=== PATIENT | male | born 1975 ===

== ENCOUNTER → 2023-12-11 06:24 | Day surgery (SDC) | payer BC, SELFPAY | LOC: GI 06:24 | PROVIDERS: ATTENDING PHYSICIAN Internal Medicine Gastroenterology | DX: Z12.11 Encounter for screening for malignant neoplasm of colon (principal); K51.50 Left sided colitis without complications; K63.89 Other specified diseases of intestine; K29.70 Gastritis, unspecified, without bleeding; K21.9 Gastro-esophageal reflux disease without esophagitis; K31.89 Other diseases of stomach and duodenum | CPT/HCPCS: 45380; 43239; 88305; 88342 ==

== ENCOUNTER 2024-07-16 20:20 | Inpatient (IN) | payer BC, SELFPAY ==
[2024-07-16] VITALS (8 sets, daily range): BP systolic 108–147; BP diastolic 81–101; BMI 21.6; BMI 21.5
--- NOTE | 2024-07-16 15:50 | ED.GENMED ---
History of Present Illness
General
Chief Complaint: Abdominal Symptoms
Source: patient
Exam Limitations: none
Time Seen by Provider: 07/16/24 15:24
Nursing documentation reviewed up to this point in time: agreed with
History of Present Illness
History of Present Illness:
Patient to ED ith complaint of abdominal cramping and bloody diarrhea. States he was diagnose with UC in 2013. SInce 2016 he has been in remission. In november he developed UC falre. Colonoscopy performed which showed left sided colitis,
inflammation at rectum. He was discharged on a tapered prednisone course. He states his symptms resolved withthat treatment. States he was well until may when he developoed adominal cramping and diarrhea. He was restarted on steroid taper and
stool sent for cuture. +cdiff. He was placed on a 10 day course of antibiotics which finished 3 days ago. States he continues with cramping and bloody diarrhea. Called GI and was advised to come to ED. Denies fever/chills.
Past History
Past History
ED Past Medical History: Other (ulcerative colitis)
Review of Systems
Review of Systems
Allergies reviewed?: Yes
All Other Systems: ROS reviewed and negative except as documented in HPI and ROS
Constitutional: Reports no symptoms
EENT: Reports no symptoms
Respiratory: Reports no symptoms
Cardiac: Reports no symptoms
ABD/GI: Reports abdominal pain and diarrhea
: Reports no symptoms
Musculoskeletal: Reports no symptoms
Skin: Reports no symptoms
Neurological: Reports no symptoms
Psychiatric: Reports no symptoms
Phy Exam
General Physical Exam
General Presentation: well appearing and mild distress
General age: appears stated age
General Skin: warm and dry
General Habitus: normal
General Mental: alert
General Hydration: appears well hydrated
Cardiovascular Exam
Cardiovascular Exam: regular rate/rhythm and no edema
Pulmonary Exam
Pulmonary Exam: lungs clear and no respiratory distress
Gastrointestinal Exam
Gastrointestinal Exam: normal bowel sounds, soft, no organomegaly, non distended and no cva tenderness
Palpation: generalized: Other (diffuse abd. cramping)
Musculoskeletal Exam
Musculoskeletal Exam: full ROM and neuro vasc intact
Skin Exam
Skin Exam: normal color, warm/dry and no rash
Psychiatric Exam
Psychiatric Exam: normal mood/affect
Course
Orders/Labs/Results
Orders:
Orders
07/16/24 Breakfast
NPO
Allow oral meds: Yes
Allow clear liquids: Sips of Clears
07/16/24 15:45
CT Abd/pel W Iv And Oral Contr Urgent
Comment:
Reason For Exam: abd pain, diarrhea
Iohexol [Omnipaque] See Protocol PO NOW STA
07/16/24 16:17
Complete Blood Count/With Diff Urgent
Comprehensive Metabolic Panel Urgent
Lipase Urgent
07/16/24 18:27
STOOL [C difficile Antigen & Toxins] Urgent
ABELARDO Source: Feces/Stool
Specimen Description:
Date Specimen was Collected: 07/16/24
Time Specimen was Collected: 18:07
Stool Culture Urgent
ABELARDO Source: Feces/Stool
Specimen Description:
Date Specimen was Collected: 07/16/24
Time Specimen was Collected: 18:08
07/16/24 19:00
0.9% Sodium Chloride 1000 ml [Nss] 1,000 ml IV 125 mls/hr
07/16/24 19:54
Admit/Transfer Patient As Directed
Co-Sign Provider:
Level of Care: Inpatient admission
Assign to:: Medical/Surgical
Physician / Group: Abelino
Diagnosis: Ulcerative Colitis - Acute Flare
Reason for Hospitalization: Ulcerative Colitis - Acute Flare
Expected length of stay greater than two midnights?: Yes
ELOS- Estimated Length of Stay in days: 3
I certify the patient meets the requirements for IP care: Yes
PRN Pain Medication Management As Directed
May give lesser potent ordered pain med per pt: Yes
preference::
Protocol:: Medication orders for pain may be administered in a
manner that supports deferring to patient preference
when the pt is:
- Requesting an ordered lesser potent pain medication.
Least to most potent pain medications are defined
as: acetaminophen < NSAID < tramadol < opioids
(morphine, oxycodone, hydromorphone).
- Requesting a lesser dose of the same medication IF
ORDERED.
- Requesting a less intrusive route of administration
if both routes are prescribed by the provider (PO <
IV).
07/16/24 19:56
Code Status As Directed
Resuscitation Status: Full Code
07/16/24 20:33
CRP [C-Reactive Protein] Urgent
07/16/24 21:47
Acetaminophen [Tylenol] 650 mg PO Q4HPRN PRN
HYDROmorphone [Dilaudid] 0.5 mg IV Q4HPRN PRN
Lactated Ringers [Lr] 1,000 ml IV 125 mls/hr
Ondansetron Injectable [Zofran] 4 mg IV Q6HPRN PRN
07/16/24 21:47
GASTROINTESTINAL CONSULT Routine
Consulting Provider: Rhiannon Patel
Was physician already notified: Yes
Reason for consult: Ulcerative Colitis - Acute Flare
Activity As Directed
Activity Level: Ambulate
I/O [Intake/ Output] As Directed
Frequency: Per unit guidelines
Pneumatic Compression Sleeves As Directed
Type: Knee high
Precautions As Directed
Type of Precautions: Contact
Vital Signs As Directed
Frequency: Per unit guidelines
DX Deep Vein Thrombosis Video Routine
07/17/24 00:00
Vancomycin HCl [Firvanq] 125 mg PO Q6
07/17/24 06:44
Basic Metabolic Panel IN AM
CRP [C-Reactive Protein] IN AM
Complete Blood Count/No Diff IN AM
07/17/24 11:00
mesalamine 1.2 grams PO BID
Abnormal Lab Results
07/16/24
16:17
RBC 4.08 L 10^6/uL
(4.70-6.10)
Hgb 12.3 L g/dL
(13.0-18.0)
Hct 35.5 L %
(39.0-52.0)
BUN 8 L mg/dl
(9-20)
Glucose 177 H mg/dl
(70-99)
Lipase 1983 H* U/L
(23-300)
07/16/24 16:17
07/16/24 16:17
Vital Signs
Initial and Last Documented VS:
Initial Vital Signs
Pulse Resp BP Pulse Ox
95 19 147/101 100
07/16/24 15:19 07/16/24 15:19 07/16/24 15:19 07/16/24 15:19
Last Documented Vital Signs
Temp Pulse Resp BP Pulse Ox
97.9 F 78 16 119/74 97
07/18/24 23:18 07/18/24 23:18 07/18/24 23:18 07/18/24 23:18 07/18/24 23:18
*Critical Care Note
Total Time (30-74mins, 75-104mins- exclusive of procedures): Not Applicable
Update Note
Update Note:
Patient to ED wtih diffuse abdominal cramping and bloody diarrhea. States he was recently treated for UC flare with steroid taper, and for Cdiff with 10day course of antibiotics without improvement. Cramping and diarrhea continue to worsen.
Advised by GI to come to ED. Labs CT reviewed. LIpase >1900. CT limited due to progression of contrast but no obstruction. Could not r/o enteritis. Stool sent for culture, results pending. WIll admit to hospitalist for pancreatitis, abd pain
and bloody diarrhea.
ED Attending Note
-
Portions of this chart may have been created with voice recognition software.� Occasional wrong word or��sound alike� substitutions may have occurred due to the inherent limitations of voice recognition software.
Discharge Plan
Departure
Patient Disposition: Admit
Date of Disposition: 07/16/24
Time of Disposition: 19:03
Presentation/result/management discussed w/ accepting MD/DO: Hospitalist
Condition: Fair
Covid-19: Not Applicable
Discharge Problem:
Pancreatitis, Bloody diarrhea
Interventions
Interventions:
*Risk Screen - Suicide Last Done: 07/16/24 15:19
*General Assessment Last Done: 07/16/24 16:21
*Neglect/Abuse Screening Last Done: 07/16/24 15:19
ED- Fall Risk Assessment Last Done: 07/16/24 16:21
*ED COVID-19 Vaccine History Last Done: 07/16/24 15:21
*Nursing Disposition Last Done: 07/16/24 21:35
HX-Ynpqhu-Jbrhdzcbfq Assessment Last Done: 07/16/24 19:25
Discharge Date and Time
Discharge Date/Time: 07/16/24 21:35
[2024-07-16] MEDS: OMNIPAQUE 50 ML PO (16:01)
[2024-07-16 16:32] LABS: % Basophils 0.6 % (0-2); % Eosinophils 3.2 % (0-6); % Immature Granulocytes 0.3 % (0-0.5); % Lymphocytes 25.6 % (20.5-51.1); % Monocytes 7.5 % (1.7-9.3); % Neutrophils 62.8 % (42.2-75.2); Absolute Eosinophils 0.2 10^3/uL (0-0.7); Absolute Lymphocytes 1.8 10^3/uL (1.2-3.4); Absolute Monocytes 0.5 10^3/uL (0.1-0.6); Absolute Neutrophils 4.5 10^3/uL (1.4-6.5); Hematocrit 35.5 % (39.0-52.0); Hemoglobin 12.3 g/dL (13.0-18.0); Mean Corp Hgb Conc. 34.6 g/dL (33.0-37.0); Mean Corpuscular Hgb 30.1 pg (27.0-31.0); Mean Platelet Volume 8.4 fL (7.4-10.4); Nucleated Red Blood Cells % 0 % (-); Platelet Count 354 10^3/uL (130-400); Red Blood Cell Count 4.08 10^6/uL (4.70-6.10); Red Cell Dist. Width 13.2 % (11.5-14.5); White Blood Cell Count 7.2 10^3/uL (4.8-10.8)
[2024-07-16 16:43] LABS: ALT (SGPT) 15 U/L (0-50); AST (SGOT) 18 U/L (17-59); Albumin 3.8 g/dl (3.5-5.0); Alkaline Phosphatase 92 U/L (38-126); Blood Urea Nitrogen 8 mg/dl (9-20); Calcium 9.3 mg/dl (8.4-10.2); Carbon Dioxide 26 mmol/L (22-30); Chloride 102 mmol/L (98-107); Glucose 177 mg/dl (70-99); Potassium 3.5 mmol/L (3.5-5.1); Sodium 139 mmol/L (135-145); Total Bilirubin 0.6 mg/dl (0.2-1.3); Total Protein 6.6 g/dl (6.3-8.2); eGFR > 60.00
[2024-07-16 17:13] LABS: Lipase 1983 U/L (23-300)
[2024-07-16] MEDS: NSS 1000 IV (19:27)
--- NOTE | 2024-07-16 19:49 | EDRN ---
eating. Pt informed he can not eat now, he needs bowel rest.
--- NOTE | 2024-07-16 20:00 | HPS.HSE ---
Family Physician
-
Family Physician: NOT KNOW UNKNOWN - PT DOES
Chief Complaint
-
Abd Pain, Bloody stools
History of Present Illness
Patient is a 49y M with PMH significant for ulcerative colitis who presents to ED complaining of crampy abdominal pain and loose stools. Patient has a history of UC initially diagnosed in 2013. He has been on mesalamine therapy since that time
and notes that he was fully in remission from 2016 until earlier this year when his symptoms recurred. He was treated in November 2023 with a month of oral steroids with improvement in his symptoms. He again remained symptom-free on mesalamine
until May of this year when his symptoms recurred. He describes crampy, diffuse abdominal pain and loose, bloody stools. No fevers / chills. No upper abdominal pain or back pain. No emesis though he does feel nauseated at times.
Patient was evaluated recently by GI including stool studies which were positive for CDiff. He was treated with 10 days of Dificid (and oral steroids) with some improvement in his symptoms.
Patient states that he was down to having about 3-4 soft, bloody BM at the end of his treatment. His last dose of abx was Saturday.
Since that time, he has noted increase in frequency of soft, bloody stools - now about 7-8 per day.
He continues to have abdominal discomfort. No watery diarrhea.
No other new symptoms.
No known sick contacts. His most recent travel was to [facility] in October / November of this year.
Medical History
Past Medical History
Past Medical History: Reports Other
Additional Past Medical History:
Ulcerative Colitis
Past Surgical History: Reports Other
Additional Past Surgical History:
Left Knee Surgery
Social History
Tobacco: Non-smoker
Alcohol: Occasional (Very rare (about twice per year))
Drug: None
Personal:
Living: With Family
Family History
Family History: Not pertinent
Allergies / Home Medications
Allergies reflects when Allergies were last updated in [employer].
Home Medications with original date entered in [employer]
Allergy/Medication List:
Allergies
Allergy/AdvReac Type Severity Reaction Status Date / Time
No Known Allergies Allergy Unverified 07/16/24 15:22
Home Medications
cholecalciferol (vitamin D3) 25 mcg (1,000 unit) tablet (Vitamin D3) 25 mcg PO HS 07/16/24
dicyclomine 20 mg tablet 20 mg PO BIDPRN PRN cramps 07/16/24
mesalamine 1.2 gram tablet,delayed release 1.2 g PO BID 07/16/24
Review of Systems
-
History Source: Patient
A 12 point ROS was completed and negative except as noted: Yes
Constitutional: Denies Fever, Fatigue or Chills
EENT: Denies Sore Throat
Respiratory: Denies Cough or Trouble Breathing
Cardiac: Denies Chest Pain or Palpitations
Abdomen/GI: Reports Abdominal Pain, Nausea, Diarrhea and Bloody Stools; Denies Vomiting, Constipated, Black Stools or Anorexia
: Denies Dysuria or Flank Pain
Musculoskeletal: Denies Joint Pain or Edema
Neurological: Denies Dizzy or Headache
Physical Exam
Vital Signs
Vital Signs
Temp Pulse Resp BP Pulse Ox
98.6 F 92 16 116/86 100
07/16/24 15:21 07/16/24 19:25 07/16/24 19:25 07/16/24 19:25 07/16/24 19:45
Physical Exam
General: Other (49y M in no acute distress.)
HEENT: Moist mucous membranes and PERRLA
Respiratory: Clear; No Wheezes, Rales or Rhonchi
Cardiac: S1/S2 and Regular Rhythm; No Murmur
GI: Soft, Non Tender, Non Distended and Normal Bowel Sounds
Musculoskeletal: No Clubbing, No Cyanosis and No Edema
Neuro: AO x 3
Laboratory Results
-
07/16/24 16:17
07/16/24 16:17
Laboratory Results
Total Bilirubin 0.6 mg/dl (0.2-1.3) 07/16/24 16:17
AST 18 U/L (17-59) 07/16/24 16:17
ALT 15 U/L (0-50) 07/16/24 16:17
Alkaline Phosphatase 92 U/L (38-126) 07/16/24 16:17
Lipase 1983 U/L (23-300) H* 07/16/24 16:17
Impression/Plan
-
A/P: Patient is a 49y M with PMH significant for ulcerative colitis who presents to ED for evaluation of crampy abdominal pain and bloody stools.
Ulcerative Colitis with Acute Flare
- Admit for further evaluation and treatment.
- Suspect inflammatory > infectious colitis at this time.
- Continue with mesalamine.
- Rule out active infection with stool cultures / repeat CDiff studies (see below).
- GI evaluation.
- Probable IV steroids after cultures are resulted / negative.
- Supportive care including IVFs, pain control, etc.
Recent CDiff Colitis
- s/p 10 days of Dificid therapy completing on 07/13/24.
- Currently without typical, watery diarrhea.
- Start oral Vancomycin for now pending repeat CDiff results.
- Follow frequency of stooling.
- Follow proper precautions.
Abnormal Lipase
- This is likely due to inflammatory bowel disease.
- No vomiting or upper abdominal symptoms.
- Pancreas normal-appearing on CT scan.
- No specific triggers for acute pancreatitis by history.
- NPO overnight, but would consider trial of clears in the AM and advance as tolerated.
DVT Prophylaxis: SCDs
Code Status: Full
[2024-07-16] MEDS: LR 1000 IV (22:06)
[2024-07-17] MEDS: FIRVANQ 125 MG PO ×4 (00:49→20:23)
[2024-07-17] MEDS: LR 1000 IV (06:50)
[2024-07-17 07:28] LABS: Hematocrit 36.6 % (39.0-52.0); Hemoglobin 12.6 g/dL (13.0-18.0); Mean Corp Hgb Conc. 34.4 g/dL (33.0-37.0); Mean Corpuscular Hgb 30.1 pg (27.0-31.0); Mean Corpuscular Volume 87.4 fL (80.0-94.0); Mean Platelet Volume 8.5 fL (7.4-10.4); Platelet Count 336 10^3/uL (130-400); Red Blood Cell Count 4.19 10^6/uL (4.70-6.10); Red Cell Dist. Width 13.5 % (11.5-14.5); White Blood Cell Count 8.2 10^3/uL (4.8-10.8)
[2024-07-17] MEDS: ZOFRAN 4 MG IV (07:51)
[2024-07-17 07:53] VITALS: BP 128/87
[2024-07-17 07:56] LABS: Blood Urea Nitrogen 5 mg/dl (9-20); Carbon Dioxide 25 mmol/L (22-30); Chloride 102 mmol/L (98-107); Estimated Creatinine Clearance 76 ml/min; Glucose 101 mg/dl (70-99); Potassium 4.2 mmol/L (3.5-5.1); Sodium 139 mmol/L (135-145); eGFR > 60.00
--- NOTE | 2024-07-17 08:23 | CON.GI ---
Addendum entered and electronically signed by Rhiannon Patel DO 07/17/24 12:01:
Patient seen and examined independently of the physician pharmacy sales assistant. I agree with her note with my additions below
Mr. Hernández is a otherwise healthy 49-year-old male with 10 years of left-sided ulcerative colitis with a cecal patch maintained on Lialda who has had 2 rounds of steroids this year due to flare like symptoms who was found to have C. difficile in
June treated with 10 days of Dificid. He had minimal improvement of frequency but did have some mild improvement in blood while on the Dificid. Currently having 6 to 7 brown bloody loose bowel movements daily with cramping during bowel
movements otherwise no significant abdominal pain. Some nausea but no vomiting. No prior C. difficile until June. Outpatient fecal calprotectin was over 5000. He is biologic na�ve and only has been on mesalamine in the past. No recent
antibiotic use. No sick contacts. Was in [place] in October otherwise no travel.
Abdomen is soft, no significant tenderness
Overall likely UC flare complicated by recent C. difficile
-- Started IV steroids, had 2 rounds of oral steroids this year which is his first time for steroids
-- Will perform flexible sigmoidoscopy today
-- Despite C. difficile being negative today continue vancomycin for suppression in the setting of IBD
-- Trend CRP, discussed with and patient to monitor the frequency, consistency and if there is any blood in the stools so we can determine if there is any improvement on the IV steroids
-- Needs DVT prophylaxis, hold off on acid suppression in the setting of C. difficile
-- Zofran can help for nausea and cramping, avoid narcotics
-- Will check hepatitis B, TB testing to prep him for likely biologic hopefully outpatient
Original Note:
Consultation
-
Date/Time Consultation Requested: 07/16/242146
Date/Time Consultation Performed: 07/17/24 3215
Requesting Provider: Dr Roca
Performing Provider: Dr. Rhiannon Patel / Pamella Corrales PA-C
Reason for Consultation: bloody diarrhea
Medical History
Chief Complaint / HPI
Chief Complaint: bloody diarrhea
History of Present Illness:
This is a 49 year old male with a past medical history of ulcerative colitis, diagnosed in 2013 and maintained on mesalamine with UC in remission for the past 6-7 years with symptoms that returned earlier this year in November 2023, with recently
treated C difficile colitis (completed Dificid treatment outpatient 07/13/24), who presented to the ER with ongoing bloody bowel movements. He is followed by Dr. Polk in our office. Patient states that in October of this year he was under a lot of
stress as his father and he traveled to [place] for 2 weeks. Upon return he complained of symptoms of UC flare, underwent colonoscopy in November 2023 showing active left-sided colitis from the sigmoid to distal descending colon with Baker
score 2. He was treated with a course of steroids and symptoms improved, but then flared again in . He complained of abdominal cramping with bloody bowel movements, had stool studies that were positive for C difficile with significantly
elevated fecal calprotectin (5580). He did complete Dificid, as well as a second course of oral steroids, but states the bloody bowel movements and cramping continued. He is now having bloody, watery diarrhea, with about 6-7 BMs/day. No fevers,
chills or vomiting. He does feel mild nausea. Besides the travel to [facility] in October, he denies any other recent travel. No sick contacts. Prior to the Dificid, no recent antibiotic use.
Past Medical History
Past Medical History: Other (ulcerative colitis)
Past Surgical History: Other (left knee surgery)
Social History
Tobacco: Non-Smoker
Alcohol: Occasional (rare)
Drug: None
Personal:
Living: With Family
Employment: Employed
Family History
Family History: Reviewed & Not Pertinent (no family history of IBD or colon cancer)
Allergies / Home Medications
Allergy/AdvReac Type Severity Reaction Status Date / Time
No Known Allergies Allergy Unverified 07/16/24 15:22
�Medication �Instructions �Recorded
cholecalciferol (vitamin D3) 25 25 mcg PO HS 07/16/24
mcg (1,000 unit) tablet (Vitamin
D3)
dicyclomine 20 mg tablet 20 mg PO BIDPRN PRN cramps 07/16/24
mesalamine 1.2 gram tablet,delayed 1.2 g PO BID 07/16/24
release
Review of Systems
-
History Source: Patient and Family
All other systems: A 12 pt ROS was Negative except as stated above in HPI
Vital Signs
Temp Pulse Resp BP Pulse Ox
98.1 F 88 17 128/87 100
07/17/24 07:53 07/17/24 07:53 07/17/24 07:53 07/17/24 07:53 07/17/24 07:53
Physical Exam
Exam
General: Well Developed, Well Nourished and No Apparent Distress
Respiratory: Clear
Cardiac: Regular Rhythm
GI: Soft, Non Tender, Non Distended and Normal Bowel Sounds
Skin: Warm and Dry
Neuro: AO x 3
Psych: Calm
Results
WBC 8.2 10^3/uL (4.8-10.8) 07/17/24 06:44
Hgb 12.6 g/dL (13.0-18.0) L 07/17/24 06:44
Hct 36.6 % (39.0-52.0) L 07/17/24 06:44
MCV 87.4 fL (80.0-94.0) 07/17/24 06:44
Plt Count 336 10^3/uL (130-400) 07/17/24 06:44
Absolute Neuts (auto) 4.5 10^3/uL (1.4-6.5) 07/16/24 16:17
Sodium 139 mmol/L (135-145) 07/17/24 06:44
Potassium 4.2 mmol/L (3.5-5.1) 07/17/24 06:44
Chloride 102 mmol/L (98-107) 07/17/24 06:44
Carbon Dioxide 25 mmol/L (22-30) 07/17/24 06:44
BUN 5 mg/dl (9-20) L 07/17/24 06:44
Creatinine 0.9 mg/dL (0.7-1.3) 07/17/24 06:44
Calcium 9.0 mg/dl (8.4-10.2) 07/17/24 06:44
Total Bilirubin 0.6 mg/dl (0.2-1.3) 07/16/24 16:17
AST 18 U/L (17-59) 07/16/24 16:17
ALT 15 U/L (0-50) 07/16/24 16:17
Alkaline Phosphatase 92 U/L (38-126) 07/16/24 16:17
Lipase 1983 U/L (23-300) H* 07/16/24 16:17
Diagnostic Image Results:
CT abdomen/pelvis w/ IV and oral contrast: 07/16/24
Unremarkable appendix.
Limited evaluation of large bowel, not opacified with oral contrast and with virtually completely empty colon distal to the mid transverse colon. Mild at least relative enhancement of the wall of the virtually completely empty distal colon,
nonspecific, cannot exclude enteritis. No intestinal obstruction or free air.
Prior GI Procedures:
EGD:
12/11/2023, Dr. Polk:
Normal esophagus.
- Gastritis. Biopsied.
- Normal examined duodenum. Biopsied.
Colonoscopy:
12/11/2023, Dr. Polk:
The examined portion of the ileum was normal.
- Inflammation was found in the rectum. This was
graded as Baker Score 1 (mild disease).
- Left-sided colitis. Inflammation was found from the
sigmoid colon to the distal descending colon. This was
graded as Baker Score 2 (moderate disease). Biopsied.
- Granularity in the cecum. Biopsied.
Recommendation: - Discharge patient to home.
- Resume previous diet.
- Await pathology results.
- Repeat colonoscopy for surveillance based on
pathology results.
-will start him on steroid taper
Pathology- Bx: mild to moderate chronic active colitis
Assessment / Plan
-
49 year old male with a past medical history of ulcerative colitis, diagnosed in 2013 and maintained on mesalamine with UC in remission for the past 6-7 years with symptoms that returned earlier this year in November 2023, with recently treated C
difficile colitis (completed Dificid treatment outpatient 07/13/24), who presented to the ER with ongoing bloody bowel movements. He is followed by Dr. Polk in our office. Patient states that in October of this year he was under a lot of stress as
his father and he traveled to [facility] for 2 weeks. Upon return he complained of symptoms of UC flare, underwent colonoscopy in November 2023 showing active left-sided colitis from the sigmoid to distal descending colon with Baker score 2.
He was treated with a course of steroids and symptoms improved, but then flared again in April/May. He complained of abdominal cramping with bloody bowel movements, had stool studies that were positive for C difficile with significantly elevated
fecal calprotectin (5580). He did complete Dificid, as well as a second course of oral steroids, but states the bloody bowel movements and cramping continued. He is now having bloody, watery diarrhea, with about 6-7 BMs/day. No fevers, chills or
vomiting. He does feel mild nausea. Besides the travel to [facility] in October, he denies any other recent travel. No sick contacts. Prior to the Dificid, no recent antibiotic use.
CT abdomen/pelvis with limited evaluation of the colon as contrast did not reach this area (pt states he was unable to drink all the oral contrast), but no evidence of intestinal obstuction or free air and unremarkable appendix. Labs stable, with ER
admission labs showing WBC 7.2, Hgb 12.3, normal LFTs and platelets, and elevated C-reactive protein, 17.7. Stool studies (C diff, stool cultures) have been ordered, pending. He has been started on oral vancomycin.
IMPRESSION / PLAN:
Ulcerative Colitis - flare vs C difficile colitis
- recently tx'd with Dificid for +C diff, but with continued symptoms of bloody diarrhea
- await stool study results
- continue oral vancomycin
- will start IV steroids now
- continue IV fluids, antiemetics prn
- consult Infectious Disease
We will follow.
-
-
Thank you for consultation and allowing me to participate in the patient's care. Please call the environmental compliance engineer GI physician during the after hours with any questions or concerns.
--- NOTE | 2024-07-17 10:20 | CM ---
manager business development hospice reviewed patient's chart and met with patient and patient's states he lives with his spouse and children in a 2 story home, patient is independent with adl's and ambulation, patient drives.
PCP: Dr. Gabriel
Pharmacy: [facility] in [place]
Plan; Home when stable, no needs.
[2024-07-17] MEDS: SOLU-MEDROL PF 20 MG IV ×3 (10:22→21:29)
[2024-07-17 10:38] VITALS: BMI 21.5
--- NOTE | 2024-07-17 11:52 | W.PN.HOSP.TC ---
Today's Communication/Plan
-
see plan
Assessment / Plan
Assessment / Plan
49y M with PMH significant for ulcerative colitis who presents to ED for evaluation of crampy abdominal pain and bloody stools.
Gen: NAD, AAOx3.
Eyes: EOMI, PERRLA, no scleral icterus.
Neck: supple.
CV: RRR, +S1/S2, no m/r/g.
Resp: CTAB, no rales, wheezes, or rhonchi.
Abd: +BS, soft, NT to light palpation, ND
Skin: No rashes.
Neuro: CN 2-12 intact, non-focal.
Psych: Normal mood and affect.
CT A/P: Unremarkable appendix. Limited evaluation of large bowel, not opacified with oral contrast and with virtually completely empty colon distal to the mid transverse colon. Mild at least relative enhancement of the wall of the virtually
completely empty distal colon, nonspecific, cannot exclude enteritis. No intestinal obstruction or free air.
Ulcerative Colitis with Acute Flare:
-Suspect inflammatory > infectious colitis at this time
-GI following
-cont solumedrol
-cont IVFs/Fulls
-C diff NEG, with h/o recent C diff colitis cont prophylactic oral vancomycin
-ID to see as per GI
-Abnormal lipase, likely due to inflammatory bowel disease
-case discussed with Dr. Patel. For Flex sig today.
FULL/SCDs
Anticipated Discharge: 24 - 48 hours
Subjective/Interval History
-
Date of Service: July 17, 2024
Denies abd pain. Still with diarrhea/hematochezia.
Objective Data
-
Labs:
Laboratory Results
07/17/24
06:44
WBC 8.2
Hgb 12.6 L
Hct 36.6 L
Plt Count 336
Sodium 139
Potassium 4.2
Chloride 102
Carbon Dioxide 25
BUN 5 L
Creatinine 0.9
Glucose 101 H
Calcium 9.0
Vital Signs:
Vital Signs
Temp Pulse Resp BP Pulse Ox
98.1 F 88 17 128/87 100
07/17/24 07:53 07/17/24 07:53 07/17/24 07:53 07/17/24 07:53 07/17/24 07:53
I&O
07/16/24 07/17/24 07/18/24
06:59 06:59 06:59
Intake Total 1125 / 1125
Balance 5 / 1125
[2024-07-17 15:30] VITALS: BP 111/69
[2024-07-17] MEDS: LOVENOX 40 MG SC (16:41)
[2024-07-17] MEDS: LR IV (18:10)
[2024-07-17] MEDS: COLOCORT/CORTENEMA 60 ML RECTAL (22:39)
[2024-07-17 23:07] VITALS: BP 130/74
[2024-07-18] MEDS: SOLU-MEDROL PF 20 MG IV ×4 (05:02→22:20)
[2024-07-18 07:29] VITALS: BP 125/84
[2024-07-18] MEDS: NON-FORMULARY ITEM 1.2 GRAMS PO (09:33)
[2024-07-18] MEDS: LOVENOX 40 MG SC (09:33)
[2024-07-18] MEDS: FIRVANQ 125 MG PO ×2 (09:39→22:19)
--- NOTE | 2024-07-18 10:20 | W.PN.HOSP.TC ---
Today's Communication/Plan
-
see bold
Assessment / Plan
Assessment / Plan
49y M with PMH significant for ulcerative colitis who presents to ED for evaluation of crampy abdominal pain and bloody stools.
Gen: Remains NAD, AAOx3.
Eyes: EOMI, PERRLA, no scleral icterus.
Neck: supple.
CV: Remains RRR, +S1/S2, no m/r/g.
Resp: CTAB, no rales, wheezes, or rhonchi.
Abd: +BS, soft, NT, ND
Skin: No rashes.
Neuro: CN 2-12 intact, non-focal.
Psych: Normal mood and affect.
CT A/P: Unremarkable appendix. Limited evaluation of large bowel, not opacified with oral contrast and with virtually completely empty colon distal to the mid transverse colon. Mild at least relative enhancement of the wall of the virtually
completely empty distal colon, nonspecific, cannot exclude enteritis. No intestinal obstruction or free air.
Ulcerative Colitis with Acute Flare:
-Flex Sig 07/17/24: Severe (Baker Score 3) ulcerative colitis, worsened since the last examination. Biopsied and sent for CMV. Only viewed up to the sigmoid (unclear the extent of inflammation based on today's examination)
-GI following
-cont solumedrol 20mg IV Q8H and Cortenema enema daily
-was on IVFs, now off
-advanced to LR diet
-C diff NEG, with h/o recent C diff colitis cont prophylactic oral vancomycin
-Abnormal lipase, likely due to inflammatory bowel disease
Patient's updated at bedside.
FULL/SCDs
Anticipated Discharge: > 48 hours
Subjective/Interval History
-
Date of Service: July 18, 2024
Reports watery stool without blood. Frequency of diarrhea improving.
Objective Data
-
Labs:
Laboratory Results
07/18/24
09:19
WBC Pending
Hgb Pending
Hct Pending
Plt Count Pending
Vital Signs:
Vital Signs
Temp Pulse Resp BP Pulse Ox
98.4 F 79 20 125/84 100
07/18/24 07:29 07/18/24 07:29 07/18/24 07:29 07/18/24 07:29 07/18/24 07:29
I&O
07/17/24 07/18/24 07/19/24
06:59 06:59 06:59
Intake Total 1124 / [id number]
Balance 1124 / [id number]
[2024-07-18 10:40] LABS: Platelet Count 422 10^3/uL (130-400)
[2024-07-18 10:43] LABS: Hematocrit 39.4 % (39.0-52.0); Hemoglobin 13.5 g/dL (13.0-18.0); Mean Corp Hgb Conc. 34.3 g/dL (33.0-37.0); Mean Corpuscular Hgb 29.7 pg (27.0-31.0); Mean Corpuscular Volume 86.8 fL (80.0-94.0); Mean Platelet Volume 9.1 fL (7.4-10.4); Red Blood Cell Count 4.54 10^6/uL (4.70-6.10); Red Cell Dist. Width 13.3 % (11.5-14.5); White Blood Cell Count 8.6 10^3/uL (4.8-10.8)
--- NOTE | 2024-07-18 11:47 | W.PN.GI.CBS2 ---
Today's Communication / Plan
-
-- continue current therapy
Assessment / Plan
-
49 year old male with a past medical history of ulcerative colitis, diagnosed in 2013 and maintained on mesalamine with UC in remission for the past 6-7 years with symptoms that returned earlier this year in November 2023, with recently treated C
difficile colitis (completed Dificid treatment outpatient 07/13/24), who presented to the ER with ongoing bloody bowel movements. He is followed by Dr. Polk in our office. Patient states that in October of this year he was under a lot of stress as
his father and he traveled to [place] for 2 weeks. Upon return he complained of symptoms of UC flare, underwent colonoscopy in November 2023 showing active left-sided colitis from the sigmoid to distal descending colon with Baker score 2.
He was treated with a course of steroids and symptoms improved, but then flared again in . He complained of abdominal cramping with bloody bowel movements, had stool studies that were positive for C difficile with significantly elevated
fecal calprotectin (5580). He did complete Dificid, as well as a second course of oral steroids, but states the bloody bowel movements and cramping continued. He is now having bloody, watery diarrhea, with about 6-7 BMs/day. No fevers, chills or
vomiting. He does feel mild nausea. Besides the travel to [facility] in October, he denies any other recent travel. No sick contacts. Prior to the Dificid, no recent antibiotic use.
CT abdomen/pelvis with limited evaluation of the colon as contrast did not reach this area (pt states he was unable to drink all the oral contrast), but no evidence of intestinal obstuction or free air and unremarkable appendix. Labs stable, with ER
admission labs showing WBC 7.2, Hgb 12.3, normal LFTs and platelets, and elevated C-reactive protein, 17.7. Stool studies (C diff, stool cultures) have been ordered, pending. He has been started on oral vancomycin.
IMPRESSION / PLAN:
Ulcerative Colitis - flare vs C difficile colitis
07/17/24: flex sig: severe Baker 3 up to the sigmoid colon - biopsies taken
07/18/24: continue IV steroids, cortenemas, Lialda, low residue diet, DVT proph, started low dose pepcid due to nausea and steroid use (avoiding ppi due to the cdiff)
-- will need soon outpatient follow up to start biologic
-- discussed with his outpatient GI, Dr. Polk yesterday
Subjective
Subjective
Date of Service: July 18, 2024
no more blood, less frequency but still watery, no form
Objective
Data Reviewed
Laboratory Data:
Laboratory Results
07/18/24 09:19
07/17/24 06:44
Laboratory Results
Total Bilirubin 0.6 mg/dl (0.2-1.3) 07/16/24 16:17
AST 18 U/L (17-59) 07/16/24 16:17
ALT 15 U/L (0-50) 07/16/24 16:17
Alkaline Phosphatase 92 U/L (38-126) 07/16/24 16:17
Lipase 1983 U/L (23-300) H* 07/16/24 16:17
Vital Signs and I&O:
Vital Signs
Temp Pulse Resp BP Pulse Ox
98.4 F 79 20 125/84 100
07/18/24 07:29 07/18/24 07:29 07/18/24 07:29 07/18/24 07:29 07/18/24 07:29
I&O
07/17/24 07/18/24 07/19/24
06:59 06:59 06:59
Intake Total 1124
Balance 1124
Physical Exam
Physical Exam
HEENT: Anicteric
Cardiology: Normal Sinus Rhythm
Pulmonary: Clear
GI: Soft, Non Distended and Non Tender
Extremities: No Edema
Neuro: Non Focal
[2024-07-18 15:32] VITALS: BP 114/77
[2024-07-18] MEDS: ZOFRAN 4 MG IV (16:50)
[2024-07-18] MEDS: PEPCID PO (20:18)
[2024-07-18] MEDS: PEPCID 20 MG PO (20:24)
[2024-07-18] MEDS: COLOCORT/CORTENEMA 60 ML RECTAL (22:20)
[2024-07-18 23:18] VITALS: BP 119/74
[2024-07-19] MEDS: SOLU-MEDROL PF 20 MG IV ×4 (04:58→21:48)
[2024-07-19 07:00] VITALS: BP 101/70
[2024-07-19] MEDS: NON-FORMULARY ITEM 1.2 GRAMS PO (08:47)
[2024-07-19] MEDS: FIRVANQ 125 MG PO ×2 (08:47→19:38)
[2024-07-19] MEDS: LOVENOX 40 MG SC (08:47)
--- NOTE | 2024-07-19 11:04 | W.PN.HOSP.TC ---
Today's Communication/Plan
-
see bold
Assessment / Plan
Assessment / Plan
49y M with PMH significant for ulcerative colitis who presents to ED for evaluation of crampy abdominal pain and bloody stools.
Gen: continues to remain NAD, AAOx3.
Eyes: EOMI, PERRLA, no scleral icterus.
Neck: supple.
CV: continues to remain RRR, +S1/S2, no m/r/g.
Resp: remains CTAB, no rales, wheezes, or rhonchi.
Abd: +BS, soft, NT, ND
Skin: No rashes.
Neuro: CN 2-12 intact, non-focal.
Psych: Normal mood and affect.
CT A/P: Unremarkable appendix. Limited evaluation of large bowel, not opacified with oral contrast and with virtually completely empty colon distal to the mid transverse colon. Mild at least relative enhancement of the wall of the virtually
completely empty distal colon, nonspecific, cannot exclude enteritis. No intestinal obstruction or free air.
Ulcerative Colitis with Acute Flare:
-Flex Sig 07/17/24: Severe (Baker Score 3) ulcerative colitis, worsened since the last examination. Biopsied and sent for CMV. Only viewed up to the sigmoid (unclear the extent of inflammation based on today's examination)
-cont solumedrol 20mg IV Q8H and Cortenema enema daily
-was on IVFs, now off
-advanced to LR diet
-C diff NEG, with h/o recent C diff colitis cont prophylactic oral vancomycin
-Abnormal lipase, likely due to inflammatory bowel disease
-GI following, discussed with Dr. Patel
FULL/SCDs
Anticipated Discharge: 24 - 48 hours
Subjective/Interval History
-
Date of Service: July 19, 2024
Diarrhea improving, no hematochezia.
Objective Data
-
Vital Signs:
Vital Signs
Temp Pulse Resp BP Pulse Ox
98.0 F 63 16 101/70 99
07/19/24 07:00 07/19/24 07:00 07/19/24 07:00 07/19/24 07:00 07/19/24 07:00
I&O
07/18/24 07/19/24 07/20/24
06:59 06:59 06:59
Intake Total 2069 800 / 800
Balance 2069 800 / 800
--- NOTE | 2024-07-19 14:37 | W.PN.GI.CBS2 ---
Today's Communication / Plan
-
switch to PO steroids for tomorrow
Assessment / Plan
-
49 year old male with a past medical history of ulcerative colitis, diagnosed in 2013 and maintained on mesalamine with UC in remission for the past 6-7 years with symptoms that returned earlier this year in November 2023, with recently treated C
difficile colitis (completed Dificid treatment outpatient 07/13/24), who presented to the ER with ongoing bloody bowel movements. He is followed by Dr. Polk in our office. Patient states that in October of this year he was under a lot of stress as
his father and he traveled to [place] for 2 weeks. Upon return he complained of symptoms of UC flare, underwent colonoscopy in November 2023 showing active left-sided colitis from the sigmoid to distal descending colon with Baker score 2.
He was treated with a course of steroids and symptoms improved, but then flared again in April/May. He complained of abdominal cramping with bloody bowel movements, had stool studies that were positive for C difficile with significantly elevated
fecal calprotectin (5580). He did complete Dificid, as well as a second course of oral steroids, but states the bloody bowel movements and cramping continued. He is now having bloody, watery diarrhea, with about 6-7 BMs/day. No fevers, chills or
vomiting. He does feel mild nausea. Besides the travel to [facility] in October, he denies any other recent travel. No sick contacts. Prior to the Dificid, no recent antibiotic use.
CT abdomen/pelvis with limited evaluation of the colon as contrast did not reach this area (pt states he was unable to drink all the oral contrast), but no evidence of intestinal obstuction or free air and unremarkable appendix. Labs stable, with ER
admission labs showing WBC 7.2, Hgb 12.3, normal LFTs and platelets, and elevated C-reactive protein, 17.7. Stool studies (C diff, stool cultures) have been ordered, pending. He has been started on oral vancomycin.
IMPRESSION / PLAN:
Ulcerative Colitis - flare vs C difficile colitis
07/17/24: flex sig: severe Baker 3 up to the sigmoid colon - biopsies taken
07/18/24: continue IV steroids, cortenemas, Lialda, low residue diet, DVT proph, started low dose pepcid due to nausea and steroid use (avoiding ppi due to the cdiff)
-- will need soon outpatient follow up to start biologic
-- discussed with his outpatient GI, Dr. Polk yesterday
07/19/24 - improving, will attempt to switch to PO steroids tomorrow and if he does well, discharge Saturday
- would keep him on the pepcid since that did help his nausea symptoms. ok for carito too
- TB and hepatitis labs sent in preparation for outpatient biologic
- would send on a vanco taper since he just had cdiff which likely worsened his flare
- CRP has normalized which is great
Subjective
Subjective
Date of Service: July 19, 2024
Patient has had 2 bowel movements today they are still on the watery side but slightly more formed and no blood. He did have 2 episodes of vomiting yesterday but his nausea improved after starting the Pepcid
Objective
Data Reviewed
Laboratory Data:
Laboratory Results
07/18/24 09:19
07/17/24 06:44
Laboratory Results
Total Bilirubin 0.6 mg/dl (0.2-1.3) 07/16/24 16:17
AST 18 U/L (17-59) 07/16/24 16:17
ALT 15 U/L (0-50) 07/16/24 16:17
Alkaline Phosphatase 92 U/L (38-126) 07/16/24 16:17
Lipase 1983 U/L (23-300) H* 07/16/24 16:17
Vital Signs and I&O:
Vital Signs
Temp Pulse Resp BP Pulse Ox
98.0 F 63 16 101/70 99
07/19/24 07:00 07/19/24 07:00 07/19/24 07:00 07/19/24 07:00 07/19/24 07:00
I&O
07/18/24 07/19/24 07/20/24
06:59 06:59 06:59
Intake Total 2069 800 / 800
Balance 2069 800 / 800
Physical Exam
Physical Exam
HEENT: Anicteric
Cardiology: Normal Sinus Rhythm
GI: Soft, Non Distended and Non Tender
Extremities: Edema
Neuro: Non Focal
[2024-07-19 15:00] VITALS: BP 125/80
[2024-07-19] MEDS: MAALOX PLUS 1 TABLET PO ×2 (15:31→19:40)
[2024-07-19] MEDS: ZOFRAN 4 MG IV (19:38)
[2024-07-19] MEDS: PEPCID 20 MG PO (21:48)
[2024-07-19] MEDS: DILAUDID 0.5 MG IV (21:53)
[2024-07-19] MEDS: COLOCORT/CORTENEMA RECTAL (23:05)
[2024-07-19 23:30] VITALS: BP 106/71
[2024-07-20 05:36] LABS: Quantiferon Mitogen minus NIL 4.53 IU/mL; Quantiferon TB Gold Plus Negative (Negative)
[2024-07-20 07:39] LABS: Hematocrit 37.1 % (39.0-52.0); Hemoglobin 12.6 g/dL (13.0-18.0); Mean Corpuscular Hgb 29.9 pg (27.0-31.0); Mean Corpuscular Volume 88.1 fL (80.0-94.0); Mean Platelet Volume 9.3 fL (7.4-10.4); Platelet Count 372 10^3/uL (130-400); Red Blood Cell Count 4.21 10^6/uL (4.70-6.10); Red Cell Dist. Width 13.2 % (11.5-14.5); White Blood Cell Count 8.4 10^3/uL (4.8-10.8)
[2024-07-20 07:55] VITALS: BP 116/72
[2024-07-20] MEDS: DELTASONE 40 MG PO (08:06)
[2024-07-20] MEDS: FIRVANQ 125 MG PO (08:06)
[2024-07-20] MEDS: LOVENOX 40 MG SC (08:07)
[2024-07-20] MEDS: NON-FORMULARY ITEM 1.2 GRAMS PO (08:08)
[2024-07-20 08:21] LABS: Blood Urea Nitrogen 15 mg/dl (9-20); Calcium 9.3 mg/dl (8.4-10.2); Carbon Dioxide 28 mmol/L (22-30); Chloride 101 mmol/L (98-107); Estimated Creatinine Clearance 85 ml/min; Glucose 141 mg/dl (70-99); Potassium 4.7 mmol/L (3.5-5.1); Sodium 138 mmol/L (135-145); eGFR > 60.00
[2024-07-20 08:26] LABS: C-Reactive Protein < 5.00 mg/L (0.0-10.00)
--- NOTE | 2024-07-20 08:57 | W.PN.HOSP.TC ---
Today's Communication/Plan
-
Discharge today
Assessment / Plan
Assessment / Plan
Physical Exam
Gen: Not in acute distress
Eyes: Normocephalic
Neck: supple.
CV: continues to remain RRR, +S1/S2
Resp: remains CTAB
Abd: +BS, soft, NT, ND
Skin: Warm. Dry.
Neuro: CN 2-12 intact, non-focal.
Psych: Normal mood and affect.
CT A/P: Unremarkable appendix. Limited evaluation of large bowel, not opacified with oral contrast and with virtually completely empty colon distal to the mid transverse colon. Mild at least relative enhancement of the wall of the virtually
completely empty distal colon, nonspecific, cannot exclude enteritis. No intestinal obstruction or free air.
Assessment/Plan
49y male with past medical history significant for ulcerative colitis who presents to ED for evaluation of crampy abdominal pain and bloody stools.
Ulcerative Colitis with Acute Flare:
-Flex Sig 07/17/24: Severe (Baker Score 3) ulcerative colitis, worsened since the last examination. Biopsied and sent for CMV. Only viewed up to the sigmoid (unclear the extent of inflammation based on today's examination)
-Completed Solumedrol 20mg IV Q8H
-Continue Prednisone 40 mg daily (send 2 weeks supply on discharge, patient can get refills from outpatient GI)
-STOP Cortenema enema daily
-Continue home Lialda(Mesalamine)
-was on IVFs, now off
-advanced to LR diet -- tolerating
-C diff NEG, with h/o recent C diff colitis cont prophylactic oral vancomycin 125 mg daily (for 7 days) as per discussion with on-call molding machine operator helper via [employer] on 07/20/24
-Abnormal lipase, likely due to inflammatory bowel disease
-GI following, discussed with Dr. Patel
-Pepcid one to two times daily prn indigestion
-Zofran prn for nausea
CODE STATUS: FULL CODE
DVT Prophylaxis: SCDs
More than 30 minutes spent in discharge including
Final examination of the patient
Summarizing hospital stay
Instructions for continuing care to all relevant caregivers
Preparation of discharge records, prescriptions, and referral forms
Total time spent (in minutes): 45
Anticipated Discharge: Today
Subjective/Interval History
-
Date of Service: July 20, 2024
Patient was seen and examined. He reported feeling much better than when he came in, still had some blood in his bowel movement this morning but overall feeling much better.
Objective Data
-
Labs:
Laboratory Results
07/20/24
06:57
WBC 8.4
Hgb 12.6 L
Hct 37.1 L
Plt Count 372
Sodium 138
Potassium 4.7
Chloride 101
Carbon Dioxide 28
BUN 15
Creatinine 0.8
Glucose 141 H
Calcium 9.3
Vital Signs:
Vital Signs
Temp Pulse Resp BP Pulse Ox
97.8 F 63 19 116/72 100
07/20/24 07:55 07/20/24 07:55 07/20/24 07:55 07/20/24 07:55 07/20/24 07:55
I&O
07/19/24 07/20/24 07/21/24
06:59 06:59 06:59
Intake Total 800 / 800 840 / 840
Balance 800 / 800 840 / 840
--- NOTE | 2024-07-20 10:08 | CM ---
Chart reviewed home when stable.
Plan; Home when stable, no needs.
[2024-07-20 12:10] VITALS: BP 102/66
[2024-07-20] MEDS: ZOFRAN 4 MG IV (14:16)
[2024-07-20] MEDS: MAALOX PLUS 1 TABLET PO (15:10)
[2024-07-20 15:29] VITALS: BP 117/75
--- NOTE | 2024-07-20 16:01 | W.PN.GI.CBS2 ---
Today's Communication / Plan
-
Discharge today. Medications listed in the chart. Discussed with hospitalist. Follow-up with Dr. Polk on the
Assessment / Plan
-
49 year old male with a past medical history of ulcerative colitis, diagnosed in 2013 and maintained on mesalamine with UC in remission for the past 6-7 years with symptoms that returned earlier this year in November 2023, with recently treated C
difficile colitis (completed Dificid treatment outpatient 07/13/24), who presented to the ER with ongoing bloody bowel movements. He is followed by Dr. Polk in our office. Patient states that in October of this year he was under a lot of stress as
his father and he traveled to [facility] for 2 weeks. Upon return he complained of symptoms of UC flare, underwent colonoscopy in November 2023 showing active left-sided colitis from the sigmoid to distal descending colon with Baker score 2.
He was treated with a course of steroids and symptoms improved, but then flared again in April/May. He complained of abdominal cramping with bloody bowel movements, had stool studies that were positive for C difficile with significantly elevated
fecal calprotectin (5580). He did complete Dificid, as well as a second course of oral steroids, but states the bloody bowel movements and cramping continued. He is now having bloody, watery diarrhea, with about 6-7 BMs/day. No fevers, chills or
vomiting. He does feel mild nausea. Besides the travel to [facility] in October, he denies any other recent travel. No sick contacts. Prior to the Dificid, no recent antibiotic use.
CT abdomen/pelvis with limited evaluation of the colon as contrast did not reach this area (pt states he was unable to drink all the oral contrast), but no evidence of intestinal obstuction or free air and unremarkable appendix. Labs stable, with ER
admission labs showing WBC 7.2, Hgb 12.3, normal LFTs and platelets, and elevated C-reactive protein, 17.7. Stool studies (C diff, stool cultures) have been ordered, pending. He has been started on oral vancomycin.
IMPRESSION / PLAN:
Ulcerative Colitis - flare vs C difficile colitis
07/17/24: flex sig: severe Baker 3 up to the sigmoid colon - biopsies taken
07/18/24: continue IV steroids, cortenemas, Lialda, low residue diet, DVT proph, started low dose pepcid due to nausea and steroid use (avoiding ppi due to the cdiff)
-- will need soon outpatient follow up to start biologic
-- discussed with his outpatient GI, Dr. Polk yesterday
07/19/24 - improving, will attempt to switch to PO steroids tomorrow and if he does well, discharge Saturday
- would keep him on the pepcid since that did help his nausea symptoms. ok for zofran too
- TB and hepatitis labs sent in preparation for outpatient biologic
- would send on a vanco taper since he just had cdiff which likely worsened his flare
- CRP has normalized which is great
07/20/2024 -continues to improve and is tolerating oral steroids and will discharge today on 40 mg of p.o. prednisone, once daily vancomycin for 1 more week as a taper in the setting of recent C. difficile and flare
Pepcid as needed which does tend to help prevent him from being nauseated in the evening, as needed Zofran
TB and hepatitis panels have been sent. TB is negative and hepatitis is pending
Patient has follow-up with Dr. Polk on on July 31. He is aware
Subjective
Subjective
Date of Service: July 20, 2024
Patient is only had 2 stools today mild amount of blood and some form. No significant nausea or vomiting today. The nausea tends to come in the afternoon
Objective
Data Reviewed
Laboratory Data:
Laboratory Results
07/20/24 06:57
07/20/24 06:57
Laboratory Results
Total Bilirubin 0.6 mg/dl (0.2-1.3) 07/16/24 16:17
AST 18 U/L (17-59) 07/16/24 16:17
ALT 15 U/L (0-50) 07/16/24 16:17
Alkaline Phosphatase 92 U/L (38-126) 07/16/24 16:17
Lipase 1983 U/L (23-300) H* 07/16/24 16:17
Vital Signs and I&O:
Vital Signs
Temp Pulse Resp BP Pulse Ox
98.1 F 63 19 117/75 100
07/20/24 15:29 07/20/24 15:29 07/20/24 15:29 07/20/24 15:29 07/20/24 15:29
I&O
07/19/24 07/20/24 07/21/24
06:59 06:59 06:59
Intake Total 800 / 800 840 / 840
Balance 800 / 800 840 / 840
Physical Exam
Physical Exam
HEENT: Anicteric
Cardiology: Normal Sinus Rhythm
GI: Soft, Non Distended and Non Tender
Extremities: No Edema
Neuro: Non Focal
[2024-07-20 18:33] LABS: Hepatitis B Surface Antigen Negative (Negative)
[2024-07-20 18:50] LABS: Hepatitis B Core Ab, Total Negative (Negative); Hepatitis B Surface Antibody Negative; Hepatitis C Antibody Negative (Negative)
[2024-07-20 19:39] LABS: Hepatitis A Antibody, Total Positive (Negative)
== END 2024-07-20 18:49 | disposition home or self-care (01) | DRG 386 ==
LOC: 4 WEST ACU 20:20
PROVIDERS: Internal Medicine; Nurse Practitioner; ADMITTING PHYSICIAN Hospitalist; ATTENDING PHYSICIAN Hospitalist; CONSULT PHYSICIAN Internal Medicine; EMERGENCY PHYSICIAN Emergency Medicine
PROC: 0DBN8ZX Excision of Sigmoid Colon, Via Natural or Artificial Opening Endoscopic, Diagnostic (ICD-10-PCS; 2024-07-17)
DX: K51.90 Ulcerative colitis, unspecified, without complications (principal); K92.1 Melena; K51.511 Left sided colitis with rectal bleeding; A04.72 Enterocolitis due to Clostridium difficile, not specified as recurrent; Z86.19 Personal history of other infectious and parasitic diseases
CPT/HCPCS: 88305; 74177; 80048; 80053; 83690; 85025; 85027; 86140; 86480; 86704; 86706; 86708; 86803; 87045; 87046; 87077; 87324; 87340; 87427; 87449; 88342; 93005; 99285; Q9967

== ENCOUNTER 2025-10-06 06:13 | Day surgery (SDC) | payer BC, SELFPAY | END 2025-10-06 08:26 | disposition home or self-care (01) | LOC: GI 06:13 | PROVIDERS: ATTENDING PHYSICIAN Internal Medicine Gastroenterology | DX: Z12.11 Encounter for screening for malignant neoplasm of colon (principal); K51.50 Left sided colitis without complications; K52.9 Noninfective gastroenteritis and colitis, unspecified; K62.89 Other specified diseases of anus and rectum | CPT/HCPCS: 45380; 88305 ==